=== PATIENT | male | born 1955 | race Caucasian/White ===

== ENCOUNTER 2019-10-04 10:12 | Outpatient (RCR) | payer MEDICAID, OTHER ==
[~2019-10-04 10:12] MED LIST: ASPI-789 PO; DOCU-143 PO; FLDR.1T PO; LACT-72 PO; METO-310 PO; PANT20TA2 PO; SERT50TA2 PO; SUCR1TAB PO
== END 2020-01-03 | disposition home or self-care (01) ==
LOC: ONC 10:12
PROVIDERS: ATTEND Internal Medicine Hematology & Oncology
DX: C15.9 Malignant neoplasm of esophagus, unspecified (principal); R59.0 Localized enlarged lymph nodes; R13.10 Dysphagia, unspecified; Z86.19 Personal history of other infectious and parasitic diseases
CPT/HCPCS: 99213